=== PATIENT | male | born 1980 | race Caucasian/White ===

== ENCOUNTER 2024-08-15 16:03 | Inpatient (IN) | payer OTHER ==
[~2024-08-15] VITALS: Ht 170.2 cm; Wt 96.8 kg
[2024-08-15 17:58] LABS: BASOPHILS % 0.6 % (0.0-2.0); EOSINOPHILS % 0.7 % (0.0-5.0); HEMATOCRIT. 42.9 % (42.0-52.0); HEMOGLOBIN. 14.9 g/dL (14.0-18.0); LYMPHOCYTES % 18.5 % (20.0-50.0); MEAN CORPUSCULAR HEMOGLOBIN 29.5 pg (28.0-32.0); MEAN CORPUSCULAR HGB CONC 34.7 g/dL (31.0-37.0); MEAN PLATELET VOLUME 8.2 fl (7.4-10.4); NEUTROPHILS % 72.2 % (40.0-76.0); PLATELET 282 x1000/uL (130-400); RED BLOOD CELL COUNT 5.05 mill/uL (4.7-6.1); RED CELL DISTRIBUTION WIDTH 13.2 % (11.6-14.6)
[2024-08-15 18:03] LABS: CHLORIDE 100 mEq/L (98-107); POTASSIUM 4.3 mEq/L (3.5-5.1); SODIUM 136 mEq/L (136-145)
[2024-08-15 18:04] LABS: CALCIUM 9.3 mg/dL (8.7-10.4); CARBON DIOXIDE 25 mEq/L (21-32)
[2024-08-15 18:08] LABS: INR 0.9; PARTIAL THROMBOPLASTIN TIME 25.3 sec (23.4-31.0); PROTHROMBIN TIME 10.2 sec (9.6-11.0)
[2024-08-15 18:09] LABS: CREATININE 0.9 mg/dL (0.6-1.3); GLUCOSE 128 mg/dL (70-105); UREA NITROGEN BLOOD 18 mg/dL (9-23)
[2024-08-15 18:10] LABS: TROPONIN I HIGH SENSITIVITY 14 ng/L (3.0-53)
[2024-08-15 19:47] LABS: TROPONIN I HIGH SENSITIVITY 14 ng/L (3.0-53)
[2024-08-15 20:55] LABS: TROPONIN I HIGH SENSITIVITY 17 ng/L (3.0-53)
[2024-08-15] MEDS: SODIUM CHLORIDE 0.9% 1,000 ML IV ONE (21:44)
[2024-08-15] MEDS: DILTIAZEM HCL 5MG/ML 5ML VIAL IV ONE (22:05)
[2024-08-15] MEDS ORDERED: ACETAMINOPHEN 325MG TABLET PO PRN (23:45)
[2024-08-15] MEDS ORDERED: ONDANSETRON HCL 4MG/2ML INJ IV PRN (23:45)
[2024-08-15] MEDS ORDERED: IPRATROPIUM/ALBUTEROL 0.5-3(2.5)MG/3ML NEB HHN PRN (23:45)
[2024-08-16] MEDS: DILTIAZEM HCL 30MG TABLET PO NR (00:26)
[2024-08-16] MEDS ORDERED: AMIODARONE HCL 900 MG in DEXT 5% WATER 482 ML IV SCH (01:15)
[2024-08-16] MEDS ORDERED: AMIODARONE HCL 150 MG in DEXT 5% WATER 100 ML IV ONE (01:15)
[2024-08-16] MEDS ORDERED: LORAZEPAM 0.5MG TABLET PO PRN (01:30)
[2024-08-16] MEDS ORDERED: AMIODARONE 150MG/100ML PREMIX IV NR (01:30)
[2024-08-16] MEDS ORDERED: DEXTROSE 50% WATER 50ML SYRINGE IV PRN (01:30)
[2024-08-16] MEDS ORDERED: AMIODARONE 360MG/200ML D5W PREMIX IV SCH (02:00)
[2024-08-16] MEDS: ENOXAPARIN 100MG/ML SYR SUBCUT SCH (02:31)
[2024-08-16 02:37] VITALS: BP 100/63; PULSE 88; RESP 18; TEMP 36.3
[2024-08-16 04:00] VITALS: BP 100/54; PULSE 65; RESP 19; TEMP 36.6; O2SAT 100
[2024-08-16 04:32] LABS: ALANINE AMINOTRANSFERASE 14 IU/L (10-49); ALBUMIN 3.9 g/dL (3.2-4.8); ASPARTATE AMINOTRANSFERASE 18 IU/L (<34); BILIRUBIN DIRECT 0.1 mg/dL (<=3.0); BILIRUBIN TOTAL 0.5 mg/dL (0.1-1.0); PROTEIN TOTAL 6.5 g/dL (6.0-8.3)
[2024-08-16] MEDS: BLOOD SUGAR DIAGNOSTIC STRIP TEST SCH (06:56)
[2024-08-16] MEDS: PANTOPRAZOLE 40MG DR TABLET PO SCH (06:56)
[2024-08-16] MEDS: INSULIN LISPRO 100 UNITS/ML SUBCUT SCH (07:50)
[2024-08-16 08:00] VITALS: BP 108/56; PULSE 82; RESP 18; TEMP 36.2; O2SAT 97
[2024-08-16 08:20] LABS: BASOPHILS % 0.5 % (0.0-2.0); HEMATOCRIT. 43.2 % (42.0-52.0); HEMOGLOBIN. 14.9 g/dL (14.0-18.0); LYMPHOCYTES % 41.3 % (20.0-50.0); MEAN CORPUSCULAR HEMOGLOBIN 29.5 pg (28.0-32.0); MEAN CORPUSCULAR HGB CONC 34.4 g/dL (31.0-37.0); MEAN CORPUSCULAR VOLUME 85.7 fL (80.0-94.0); MEAN PLATELET VOLUME 8.4 fl (7.4-10.4); MONOCYTES % 9.1 % (2.0-8.0); NEUTROPHILS % 47.1 % (40.0-76.0); PLATELET 254 x1000/uL (130-400); RED BLOOD CELL COUNT 5.04 mill/uL (4.7-6.1); RED CELL DISTRIBUTION WIDTH 13.1 % (11.6-14.6); WHITE BLOOD COUNT 11.9 x1000/uL (4.5-11.0)
[2024-08-16 08:31] LABS: CHLORIDE 104 mEq/L (98-107); POTASSIUM 3.9 mEq/L (3.5-5.1); SODIUM 142 mEq/L (136-145)
[2024-08-16 08:32] LABS: CALCIUM 9.2 mg/dL (8.7-10.4); CARBON DIOXIDE 28 mEq/L (21-32)
[2024-08-16 08:34] LABS: CREATINE KINASE MB FRACTION 1.6 ng/mL (0.5-3.6)
[2024-08-16 08:37] LABS: CREATININE 0.9 mg/dL (0.6-1.3); GLUCOSE 99 mg/dL (70-105); TRIGLYCERIDE 172 mg/dL (0-150); UREA NITROGEN BLOOD 16 mg/dL (9-23)
[2024-08-16 08:38] LABS: LDL CHOLESTEROL 108 mg/dL (5-100)
[2024-08-16 08:39] LABS: ALANINE AMINOTRANSFERASE 15 IU/L (10-49); ALBUMIN 4.2 g/dL (3.2-4.8); ASPARTATE AMINOTRANSFERASE 20 IU/L (<34); BILIRUBIN DIRECT 0.2 mg/dL (<=3.0); CHOLESTEROL 168 mg/dL (<200); HDL CHOLESTEROL 41 mg/dL (>55); PHOSPHORUS 3.3 mg/dL (2.5-4.9); T4 FREE 1.39 ng/dL (0.89-1.76)
[2024-08-16 08:40] LABS: BILIRUBIN TOTAL 0.6 mg/dL (0.1-1.0); PROTEIN TOTAL 6.9 g/dL (6.0-8.3)
[2024-08-16 08:41] LABS: THYROID STIMULATING HORMONE 2.09 uIU/mL (0.55-4.78)
[2024-08-16 12:00] VITALS: BP 108/66; PULSE 71; RESP 18; TEMP 36.2; O2SAT 98
[2024-08-16] MEDS ORDERED: APIX5TAB PO (14:26)
[2024-08-16 15:45] VITALS: BP 106/68; PULSE 78; TEMP 97.1; O2SAT 98
[2024-08-16 16:00] VITALS: BP 117/68; PULSE 76; RESP 18; TEMP 36.6; O2SAT 98
== END 2024-08-16 16:30 | disposition home or self-care (01) | DRG 310 ==
LOC: ER 16:03 → EDBEDREQ 18:37 → EDBEDREQTM 22:51 → ENRESERV 23:27 → 6WST 08-16 01:34
PROVIDERS: ADMIT Hospitalist; ATTEND Hospitalist
DX: I48.91 Unspecified atrial fibrillation (principal); I50.9 Heart failure, unspecified; I11.0 Hypertensive heart disease with heart failure; E66.9 Obesity, unspecified; E11.9 Type 2 diabetes mellitus without complications; Z68.33 Body mass index [BMI] 33.0-33.9, adult; E78.5 Hyperlipidemia, unspecified; I42.9 Cardiomyopathy, unspecified; I95.9 Hypotension, unspecified; D72.829 Elevated white blood cell count, unspecified; Z86.718 Personal history of other venous thrombosis and embolism; Z79.84 Long term (current) use of oral hypoglycemic drugs; Z79.01 Long term (current) use of anticoagulants
CPT/HCPCS: 36415; 71045; 80048; 80061; 80076; 82550; 82553; 82962; 83036; 83735; 83880; 84100; 84145; 84439; 84443; 84484; 85025; 85379; 93005; 99291; J0282; J1650; J3490; J7030